=== PATIENT | female | born 1970 | race African-American/Black ===

== ENCOUNTER 2019-04-14 05:04 | Day surgery (SDC) | payer BC ==
[2019-04-13 12:34] VITALS: BMI 51.7
[~2019-04-14 05:04] MED LIST: LIDOCAINE 1%/EPI 1:100000 (20 ML MULTI DOSE VIAL) IJ ONE; MICROFIBRILLAR COLLAGEN 1 GM EACH TP ONE
[2019-04-14] MEDS ORDERED: LIDOCAINE 1%-EPI 1:100,000 30 ML MDV IJ ONE (11:43)
[2019-04-14] MEDS ORDERED: MICROFIBRILLAR COLLAGEN 1 GM EACH ONE (11:43)
[2019-04-14] MEDS ORDERED: KETAMINE HCL 200 MG/20 ML VIAL ONE (11:49)
[2019-04-14] MEDS ORDERED: MIDAZOLAM HCL 2 MG/2 ML SINGLE DOSE VIAL ONE (11:49)
[2019-04-14] MEDS ORDERED: SODIUM CHLORIDE 0.9% P/F 10 ML VIAL IJ ONE (11:49)
[2019-04-14] MEDS ORDERED: ceFAZolin SODIUM 1 GM VIAL ONE ×2 (11:49→11:57)
[2019-04-14] MEDS ORDERED: ONDANSETRON 4 MG/2 ML VIAL ONE (11:49)
[2019-04-14] MEDS ORDERED: DEXAMETHASONE SOD PHOSPHATE 4 MG/1 ML VIAL ONE (11:49)
[2019-04-14] MEDS ORDERED: PROPOFOL 20 ML ONE ×5 (11:49→13:18)
[2019-04-14] MEDS ORDERED: LIDOCAINE HCL/PF 2% SDV 5ML VIAL ONE ×2 (11:49→11:50)
[2019-04-14] MEDS ORDERED: ceFAZolin SODIUM 1 GM VIAL IVPB ONE (12:20)
[2019-04-14] MEDS ORDERED: DESFLURANE GAS 240 ML BOTTLE IH ONE (12:33)
[2019-04-14] MEDS ORDERED: LIDOCAINE 1%/EPI 1:100000 (20 ML MULTI DOSE VIAL) IJ ONE (12:36)
[2019-04-14] MEDS ORDERED: SUCCINYLCHOLINE CHLORIDE 200 MG/10 ML SYRINGE ONE (13:01)
[2019-04-14] MEDS ORDERED: MICROFIBRILLAR COLLAGEN 1 GM EACH TP ONE (13:08)
--- NOTE | 2019-04-14 14:37 | OP ---
Operative Note - Note: Operative Date: 04/14/19 Pre-Operative Diagnosis: Left lobe Thyroid nodule Operation: Left lobe thyroidectomy Post-Operative Diagnosis: Same as Pre-op Surgeon: Matthew Moreno Receipt And Report Clerk: Natividad Purvis Anesthesiologist/GRAY TENDER: Shakir Beal Anesthesia: General Specimens Removed: left lobe of thyroid Estimated Blood Loss (mls): 10 Fluid Volume Replaced (mls): 1,000 Operative Report Dictated: Yes
--- NOTE | 2019-04-14 14:38 | SURG ---
Surgery Labor Delivery Specialist Note Labor Delivery Specialist: Natividad Purvis PA-C Date of Service: 04/14/19 Diagnosis: Left lobe thyroid nodule Procedure: left lobe thyroidectomy I was present for the entirety of the operative procedure. For further detail, please refer to operative report. Visit type - Case Type Case Type: Scheduled - Emergency Emergency Visit: No - New patient This patient is new to me today: Yes Date on this admission: 04/14/19
[2019-04-14] MEDS ORDERED: ALBUTEROL SO4 0.083% IH SOL 2.5 MG/3 ML VIAL.NEB. NEB ONE ×3 (14:42→17:06)
[2019-04-14] MEDS ORDERED: ACETAMINOPHEN 1000 MG/100 ML VIAL (NON FORMULARY) IVPB ONE ×2 (16:00→17:14)
[2019-04-14] MEDS ORDERED: ONDANSETRON 4 MG/2 ML VIAL IVPUSH PRN (17:05)
[2019-04-14] MEDS ORDERED: BENZOCAINE/MENTH/CETYLPYRD CL 1 EACH LOZENGE MM PRN (17:15)
[2019-04-14] MEDS ORDERED: ACETAMINOPHEN 1000 MG/100 ML VIAL (NON FORMULARY) IVPB PRN (17:15)
[2019-04-14] MEDS ORDERED: LACTATED RINGERS SOLUTION 1,000 ML IV SCH (17:15)
[2019-04-14 19:37] VITALS: BP 134/86; PULSE 73; TEMP 97.9
--- NOTE | 2019-04-14 20:11 | OP ---
DATE OF OPERATION: 04/14/2019 SURGEON: Paty Restrepo M.D. PROJECTION WELDING MACHINE OPERATOR: Prince Luz PREOPERATIVE DIAGNOSIS: Thyroid nodules. PREOPERATIVE DIAGNOSIS: Thyroid nodules. ANESTHESIA: General endotracheal anesthesia PROCEDURE: Left hemithyroidectomy. DESCRIPTION OF PROCEDURE: The patient was taken into the operating room, placed in supine position, endotracheally intubated. An ultrasound was performed, showing a large left thyroid nodule and small right thyroid nodules with no lymphadenopathy. Local anesthesia was administered and a horizontal incision was made in an anterior neck skin crease and carried down through subcutaneous tissues and platysma. Subplatysmal fascia raised superiorly and inferiorly and were placed for exposure. The median raphe was incised, and the left sided strap muscles were elevated off the thyroid gland. The recurrent laryngeal nerve, superior laryngeal nerve and parathyroid glands were identified and preserved. The superior, posterior and inferior attachments to the thyroid gland were transected. The thyroid gland was lifted off the trachea. The isthmus was transected, and in this way the left thyroid globe was removed. The left thyroid lobe was inspected for parathyroid tissue, and none was found. The wound was then closed in 3 layers. Before closure, a Valsalva maneuver was performed and no bleeding was seen. was placed. Dermabond was placed on the incision after closure, and the patient was then awakened, extubated, and taken to recovery in stable condition. Dr. Restrepo, attending surgeon, was present throughout the entire procedure. PATY RESTREPO M.D. NETO/[id number]
--- NOTE | 2019-04-18 17:22 | PATH ---
Surgical Pathology Report Patient Name: BRANDEN MOONEY [facility]. Rec. #: [id number] /Age/Gender: 1970 (Age: 48) / F Account: [id number] Location: [facility] SURGICAL Taken: 04/14/2019 Received: 04/17/2019 Reported: 04/18/2019 Physicians: Matthew Moreno M.D. Specimen(s) Received LEFT THYROID LOBE Clinical History Thyroid nodule left Final Diagnosis THYROID, LEFT, HEMITHYROIDECTOMY: BENIGN THYROID WITH MULTINODULAR HYPERPLASIA, POST-HEMORRHAGIC AND METAPLASTIC CHANGES. Electronically Signed Marielle De Jesus M.D. Gross Description Received in formalin labeled "left thyroid lobe," is a 32 g, 5.0 x 3.8 x 3.0 cm thyroid lobe. The outer surface is torres dietrich and intact. Sectioning reveals multiple heterogeneous, focally hemorrhagic colloid nodules. There is no remaining normal thyroid parenchyma identified. Planting Machine Operator sections are sequentially submitted in 8 cassettes. /04/17/2019 saudi/04/17/2019
== END 2019-04-14 19:05 | disposition home or self-care (01) ==
LOC: JASU-SURG 05:04
PROVIDERS: ATTEND Surgery
PROC: 0GTG0ZZ Resection of Left Thyroid Gland Lobe, Open Approach (ICD-10-PCS; principal; 2019-04-14 11:30)
DX: E04.2 Nontoxic multinodular goiter (principal)
CPT/HCPCS: 84703; 88307-TC; 94760; J0131